=== PATIENT | female | born 1950 | race Caucasian/White ===

== ENCOUNTER → 2020-12-15 | Outpatient (CLI) | payer MEDICARE, OTHER ==
--- NOTE | 2020-12-15 16:43 | XR ---
EXAMINATION TYPE: PA chest and right rib series, 5 views DATE OF EXAM: 12/15/2020 COMPARISON: None HISTORY: 70-year-old female R07.81, pain after fall 4 weeks ago. FINDINGS: Heart mildly enlarged. Aorta and pulmonary vasculature within normal limits. Interstitial prominence and hyperinflation. No consolidation, pneumothorax, or pleural effusion. No displaced right rib fracture seen. Cholecystectomy clips. IMPRESSION: Mild cardiomegaly and COPD. No acute process seen. No displaced right rib fracture seen.
== END | disposition home or self-care (01) ==
LOC: RADXRMAIN 15:43
PROVIDERS: ATTEND Family Medicine
DX: J44.9 Chronic obstructive pulmonary disease, unspecified (principal); I51.7 Cardiomegaly